=== PATIENT | female | born 1995 ===

== ENCOUNTER 2020-07-08 11:56 | Emergency (ER) | payer SELFPAY ==
[2020-07-08] MEDS ORDERED: Ketorolac Tromethamine 30 MG/ML VIAL ONE (12:55)
[2020-07-08 13:45] LABS: Pregnancy Test - Urine (BHCG) Negative (Negative)
[2020-07-08 13:47] LABS: Pregu Control Background? CLEAR/WHITE (CLR/WHITE); Pregu Control Bar Appear? YES (CONTROL BAR)
== END 2020-07-08 14:00 | disposition home or self-care (01) ==
LOC: CSHERS 11:56
DX: M54.5 Low back pain (principal); M79.605 Pain in left leg; V89.0XXA Person injured in unspecified motor-vehicle accident, nontraffic, initial encounter
CPT/HCPCS: 72128; 72131; 81025; 96372; J1885

== ENCOUNTER 2021-11-10 11:09 | Emergency (ER) | payer BC ==
[2021-11-10] MEDS ORDERED: Ketorolac Tromethamine 30 MG/ML VIAL ONE (12:24)
== END 2021-11-10 12:30 | disposition home or self-care (01) ==
LOC: CSHERS 11:09
DX: M54.50 Low back pain, unspecified (principal)
CPT/HCPCS: 96372; 99283; J1885